=== PATIENT | male | born 1995 | race Caucasian/White ===

== ENCOUNTER 2017-09-10 04:20 | Emergency (ER) | payer OTHER ==
--- NOTE | 2017-09-10 04:23 | ER Report ---
History and Physical Time Seen By MD: 04:23 HPI/ROS CHIEF COMPLAINT: Head injury HISTORY OF PRESENT ILLNESS: 21-year-old male brought in by friends with concerns over concussion. Patient was handling a hoarse throat when he hit his head on the left side. Patient has amnesia of the events. Witnesses deny LOC. Complaining of nausea and a dull headache. He notes no neck pain. Patient denies any other injuries. REVIEW OF SYSTEMS: Respiratory: No cough, no dyspnea. Cardiovascular: No chest pain, no palpitations. Gastrointestinal: No vomiting, no abdominal pain. Musculoskeletal: No back pain. Allergies: Coded Allergies: No Known Drug Allergies (Unverified , 09/10/17) Home Meds No Active Prescriptions or Reported Meds Reviewed Nurses Notes: Yes Old Medical Records Reviewed: Yes Constitutional Vital Sign - Last 24 Hours 09/10/17 09/10/17 09/10/17 09/10/17 04:25 04:25 04:35 04:50 Temp 98.2 Pulse 88 85 80 Resp 16 B/P (MAP) 139/87 (104) 139/87 Pulse Ox 97 96 95 O2 Delivery Room Air 09/10/17 09/10/17 09/10/17 09/10/17 05:20 05:35 05:40 05:42 Pulse 79 70 70 B/P (MAP) 112/68 (83) Pulse Ox 94 97 Physical Exam Vital signs stable, afebrile, pulse ox normal General Appearance: The patient is alert, has no immediate need for airway protection and no current signs of toxicity. No acute distress HEENT: Pupils equal and round no injection. EOMI, TMs normal, oropharynx without dental trauma Respiratory: Chest is non tender, lungs are clear to auscultation. Cardiac: regular rate and rhythm Gastrointestinal: Abdomen is soft and non tender, no masses, bowel sounds normal. Musculoskeletal: Neck: Neck is supple and non tender. Extremities have full range of motion and are non tender. Skin: No rashes or lesions. DIFFERENTIAL DIAGNOSIS: After history and physical exam differential diagnosis was considered forhead injury including but not limited to concussion, skull fracture, intraparenchymal contusion, subarachnoid, subdural and epidural hematoma. Medical Decision Making EKG/Imaging Imaging Results: CT scan of the head was obtained. The results of the study are no acute findings. The study was read by the radiologist. I viewed the images myself on the PACS system. ED Course/Re-evaluation ED Course Patient was admitted to an examination room. H&P was done. The dental diagnoses was considered. With head impact from a horse. He does have signs of concussion. A CT scan was performed which is unremarkable. Patient's advised to avoid physical activity for one week. Decision to Disposition Date: Sep 10, 2017 Decision to Disposition Time: 05:29 Depart Departure Latest Vital Signs Vital Signs Date Time Temp Pulse Resp B/P (MAP) Pulse Ox O2 Delivery O2 Flow Rate FiO2 09/10/17 05:42 112/68 (83) 09/10/17 05:40 70 09/10/17 05:35 97 09/10/17 04:25 98.2 16 Room Air Impression: Primary Impression: Concussion Condition: Improved Disposition: HOME OR SELF-CARE New Scripts No Active Prescriptions or Reported Meds Patient Instructions: Concussion (ED) Additional Instructions: Take ibuprofen and Tylenol as needed Avoid physical activity for one week Problem Qualifiers Primary Impression: Concussion Encounter type: initial encounter Loss of consciousness presence/duration: without LOC Qualified Codes: S06.0X0A - Concussion without loss of consciousness, initial encounter ESTEBAN RAY DO Sep 10, 2017 04:23
--- NOTE | 2017-09-10 05:09 | RADIOLOGY IMAGING REPORT ---
FACILITY: [facility] - [place] PATIENT NAME: Clayton Sullivan : 1995 MR: [id number] V: [id number] EXAM DATE: ORDERING PHYSICIAN: ESTEBAN RAY TECHNOLOGIST: Location: [facility] [place] Patient: Clayton Sullivan : 1995 Visit/Account:[id number] Date of Sevice: 09/10/2017 CT Head without contrast Indication: hit by a horse, amnesia of event Comparison: None available. Technique: Axial CT images were obtained through the brain from the skull base to the vertex without administration of IV contrast. One of the following dose optimization techniques was utilized in th e performance of this exam: Automated exposure control; adjustment of the mA and/or kV according to t he patient's size; or use of an iterative reconstruction technique. Specific details can be referen luis in the facility's radiology CT exam operational policy. Findings: No evidence of mass, mass effect, or midline shift. No acute intracranial hemorrhage or acute territorial infarction. No fracture. Globes and orbits are normal. Small retention cysts in the left maxillary sinus. The visualized paranasal sinuses and mastoid air spaces are otherwise clear. IMPRESSION: No acute intracranial abnormality. Report Dictated By: Hubert Jaramillo MD at 09/10/2017 5:01 AM Report E-Signed By: Hubert Jaramillo MD at 09/10/2017 5:04 AM WSN:[id number]
[2017-09-10 05:42] VITALS: BP 112/68
== END 2017-09-10 05:45 | disposition home or self-care (01) ==
LOC: ER 04:41
DX: S06.0X0A Concussion without loss of consciousness, initial encounter (principal); V80.010A Animal-rider injured by fall from or being thrown from horse in noncollision accident, initial encounter; Y93.52 Activity, horseback riding; Y99.8 Other external cause status
CPT/HCPCS: 99283